=== PATIENT | female | born 1990 | race Caucasian/White ===

== ENCOUNTER → 2016-08-23 | Outpatient (REF) | payer BC | END | disposition home or self-care (01) | LOC: M LAB REF 13:11 | PROVIDERS: ATTEND Obstetrics & Gynecology | DX: Z34.82 Encounter for supervision of other normal pregnancy, second trimester (principal); Z36 Encounter for antenatal screening of mother; Z3A.00 Weeks of gestation of pregnancy not specified ==

== ENCOUNTER → 2016-09-06 | Outpatient (CLI) | payer BC, MEDICAID, SELFPAY ==
[2016-09-06 17:58] LABS: MEAN CORPUSCULAR HEMOGLOBIN 30.5 pg (27.0-33.0); MEAN CORPUSCULAR HGB CONC 34.9 g/dl (32.0-36.5); MEAN CORPUSCULAR VOLUME 87.4 fl (80.0-96.0); WHITE BLOOD COUNT 10.6 K/mm3 (4.0-10.0)
[2016-09-06 18:45] LABS: FREE T4 1.01 NG/DL (0.76-1.46)
== END | disposition home or self-care (01) ==
LOC: M SMT 13:58
PROVIDERS: ATTEND Obstetrics & Gynecology
DX: Z34.83 Encounter for supervision of other normal pregnancy, third trimester (principal); Z36 Encounter for antenatal screening of mother; Z3A.00 Weeks of gestation of pregnancy not specified

== ENCOUNTER → 2016-10-07 | Outpatient (REF) | payer MEDICAID | END | disposition home or self-care (01) | LOC: M LAB REF 16:50 | PROVIDERS: ATTEND Specialist | DX: Z34.03 Encounter for supervision of normal first pregnancy, third trimester (principal); Z36 Encounter for antenatal screening of mother; Z3A.00 Weeks of gestation of pregnancy not specified ==

== ENCOUNTER → 2016-10-25 | Outpatient (CLI) | payer OTHER, MEDICAID ==
[2016-10-25 13:22] LABS: MEAN CORPUSCULAR HGB CONC 34.3 g/dl (32.0-36.5); MEAN CORPUSCULAR VOLUME 87.7 fl (80.0-96.0); RED CELL DISTRIBUTION WIDTH 12.5 % (11.5-14.5); WHITE BLOOD COUNT 10.4 K/mm3 (4.0-10.0)
[2016-10-25 13:41] LABS: ALT/SGPT 12 U/L (12-78); AST/SGOT 14 U/L (15-37); BILIRUBIN,TOTAL 0.2 MG/DL (0.2-1.0); CREATININE FOR GFR 0.79 MG/DL (0.55-1.02); GLOMERULAR FILTRATION RATE > 60.0 (>60); URIC ACID 5.5 MG/DL (2.6-6.0)
== END ==
LOC: M SMT 10:04
PROVIDERS: ATTEND Obstetrics & Gynecology
DX: O16.3 Unspecified maternal hypertension, third trimester (principal); Z36 Encounter for antenatal screening of mother; Z3A.00 Weeks of gestation of pregnancy not specified

== ENCOUNTER 2016-11-01 12:54 | Inpatient (IN) | payer OTHER, MEDICAID ==
[2016-11-01] VITALS (18 sets, daily range): BP systolic 120–155; BP diastolic 66–92
[~2016-11-01] VITALS: Ht 165.1 cm; Wt 94.0 kg
[2016-11-01] MEDS ORDERED: PRENTAB9 PO (13:03)
[2016-11-01 14:19] LABS: MEAN CORPUSCULAR HEMOGLOBIN 30.3 pg (27.0-33.0); MEAN CORPUSCULAR VOLUME 86.7 fl (80.0-96.0); RED CELL DISTRIBUTION WIDTH 12.5 % (11.5-14.5); WHITE BLOOD COUNT 10.6 K/mm3 (4.0-10.0)
[2016-11-01] MEDS ORDERED: LR 1,000 ML IV SCH (14:25)
[2016-11-01] MEDS ORDERED: OXYTOCIN 30 UNITS IN 0.9% NaCl 500ML IV BAG (J2590) As Ordered ONE (14:27)
[2016-11-01] MEDS ORDERED: OXYTOCIN DRIP 30 UNITS in APPROPRIATE DILUENT 1 EA IV SCH ×2 (14:30→22:16)
--- NOTE | 2016-11-01 14:48 | HPE ---
DATE OF ADMISSION: 11/01/2016 Natalie is a 26-year-old 1, para 0 at 39-1/7 weeks gestation with an estimated date of confinement (EDC) of 11/07/2016 based on last normal menstrual period and confirmed by a first trimester ultrasound. She presents to labor and delivery today following routine appointment noted to have elevated blood pressure 140/82 and with the same last week 138/94. She had a pre-eclamptic profile that returned in normal limits and a spot urine was 0.25 on 10/26/2015. She denies any regular contractions, vaginal bleeding and leakage of fluid. The fetus has been active. She does report a headache over the weekend that has since resolved. She denies visual disturbances, epigastric pain and right upper quadrant discomfort. care was initiated at [facility] in the second trend trimester as a transfer of care from alternate care provider in [facility]. course has been uncomplicated until last week. Current diagnosis is gestational hypertension. OBSTETRICAL HISTORY: Primigravida. OBSTETRICAL LABORATORIES: Blood type A+, antibody screen negative. Pap was normal. Rubella immune, VDRL nonreactive. Urine culture no growth. Hep B surface antigen negative, HIV negative gonorrhea and chlamydia negative. She did decline genetic serum screening labs. Her gestational diabetic screening was elevated at 150 with a normal 3-hour glucose tolerance test, fasting 97, 1-hour 172, 2-hour 135 a 3-hour 79. Her GBS is negative. PAST MEDICAL HISTORY: Asthma, childhood varicella. SURGERIES: None. FAMILY HISTORY: Noncontributory. SOCIAL HISTORY: The patient is . The father is at the bedside and supportive. She is a nonsmoker. Denies alcohol and drug use. No history of any sexually transmitted infections and denies history of abuse -- physical, sexual and emotional. ALLERGIES: No known drug allergies. CURRENT MEDICATIONS: vitamins and ferrous sulfate 325 mg twice a day. OBJECTIVE: Temperature 99, pulse 91, respirations 18, blood pressure upon arrival 120/84. heart rate 130 with moderate variability, positive accelerations and no decelerations noted. No pattern of regular contractions. There is noted uterine irritability. Abdomen is gravid, cephalic presentation. Estimated weight 8 pounds. Sterile vaginal exam: 2 cm dilated, 100 percent effaced, -1 station. ASSESSMENT: Intrauterine at 39-1/7 weeks. heart rate category 1. Gestational hypertension. PLAN: Per consult with Dr. Najera, induction of labor due to gestational hypertension. Out of bed ad clay. Clear liquid diet. Laboratories, including repeat pre-eclamptic profile. Start IV Pitocin for labor induction. The patient currently has a desire to manage her labor physiologically so we will encourage out of bed positions. I do anticipate labor and a spontaneous vaginal delivery. MTDD
[2016-11-01 14:57] LABS: ALT/SGPT 14 U/L (12-78); AST/SGOT 26 U/L (15-37); BILIRUBIN,TOTAL 0.4 MG/DL (0.2-1.0); CREATININE FOR GFR 0.75 MG/DL (0.55-1.02); GLOMERULAR FILTRATION RATE > 60.0 (>60); URIC ACID 6.3 MG/DL (2.6-6.0)
[2016-11-01] MEDS ORDERED: ACETAMINOPHEN 500 MG TAB PO PRN ×2 (19:00→22:30)
[2016-11-01] MEDS ORDERED: LIDOCAINE 1% MDV INJ 50 ML VIAL INFIL ONE (22:30)
[2016-11-01] MEDS ORDERED: ONDANSETRON 4MG/2ML VIAL (J2405) IV PRN (22:30)
[2016-11-01] MEDS ORDERED: DOCUSATE SODIUM 100 MG CAP PO PRN (22:30)
[2016-11-01] MEDS ORDERED: DIBUCAINE 1% OINTMENT 30GM TOP PRN (22:30)
[2016-11-01] MEDS ORDERED: IBUPROFEN 800 MG TAB PO PRN (22:30)
[2016-11-01] MEDS ORDERED: RHOGAM 300 MCG (1500 IU) INJ (J2790) IM SCH (22:30)
[2016-11-01] MEDS ORDERED: MEASLES,MUMPS,RUBELLA VACCINE INJ (MMR-II) (90707) SC SCH (22:30)
--- NOTE | 2016-11-01 22:43 | DN ---
DATE: 11/01/2016 Natalie is a 26-year-old 1, para 1-0-0-1 now who was admitted to labor and delivery for induction of labor due to gestational hypertension. IV Pitocin was utilized and labor did ensue. She did progress to full dilation at 2110 hours. She pushed to a normal spontaneous vaginal delivery of a live male in occiput anterior (OA) position with restitution to right occiput transverse (ROT) position at 2132 hours. There was a left compound hand. There was no nuchal cord. The shoulders delivered with gentle downward guidance, and the corpus immediately followed. was placed on maternal abdomen crying and active. His mouth and nares were bulb suctioned. The cord was clamped times two once pulsations ceased and cut by the father of the baby. Cord blood was obtained. A spontaneous expulsion of an intact placenta with three-vessel cord by Rosenbaum mechanism was at 2139 hours. Uterine hemostasis was achieved with uterine fundal massage and IV Pitocin rapid infusion. Estimated blood loss 400 mL. Perineum and vagina inspected, noted to have a first-degree midline laceration. The laceration was infiltrated with 1% lidocaine and #3-0 Rapide in the usual fashion. [place] male weighed 8 pounds, 36 28 grams, scores 9 and 9. Mom plans to breastfeed the son, and they have named him Beltran. At the close of delivery, lap counts, instrument counts and needle counts were correct and verified. [facility]
[2016-11-02 00:01] VITALS: BP 146/93
[2016-11-02 05:57] VITALS: BP 123/64
[2016-11-02] MEDS: PRENATAL VITAMIN TAB PO SCH (09:00)
[2016-11-02 18:03] VITALS: BP 118/74
[2016-11-03 06:24] VITALS: BP 134/88
[2016-11-03] MEDS: PRENATAL VITAMIN TAB PO SCH (09:00)
[2016-11-03] MEDS ORDERED: ACET50TA PO (09:10)
[2016-11-03] MEDS ORDERED: IBUP-1114 PO (09:13)
== END 2016-11-03 11:25 | disposition home or self-care (01) | DRG 560 ==
LOC: M LDI 12:54 → M OBS 23:52
PROVIDERS: ADMIT Advanced Practice Midwife; ATTEND Advanced Practice Midwife
PROC: 10E0XZZ Delivery of Products of Conception, External Approach (ICD-10-PCS; principal; 2016-11-01)
PROC: 0HQ9XZZ Repair Perineum Skin, External Approach (ICD-10-PCS; 2016-11-01)
PROC: 3E033VJ Introduction of Other Hormone into Peripheral Vein, Percutaneous Approach (ICD-10-PCS; 2016-11-01)
DX: O13.4 Gestational [pregnancy-induced] hypertension without significant proteinuria, complicating childbirth (principal); O64.5XX0 Obstructed labor due to compound presentation, not applicable or unspecified; Z37.0 Single live birth; Z3A.39 39 weeks gestation of pregnancy; O70.0 First degree perineal laceration during delivery; Z79.899 Other long term (current) drug therapy

== ENCOUNTER → 2018-07-10 | Outpatient (REF) | payer OTHER | LOC: M LAB REF 18:15 | DX: Z12.4 Encounter for screening for malignant neoplasm of cervix (principal) | CPT/HCPCS: 88142 ==

== ENCOUNTER → 2018-11-20 | Outpatient (REF) | payer OTHER ==
[~2018-11-20] MED LIST: IBUP-1114 PO; MAPA500T2 PO; PRENTAB9 PO
== END ==
LOC: M LAB REF 09:27
PROVIDERS: ATTEND Physician Assistant Medical
DX: L03.125 Acute lymphangitis of right lower limb (principal)

== ENCOUNTER 2021-10-03 14:46 | Emergency (ER) | payer OTHER ==
[~2021-10-03] VITALS: Ht 165.1 cm; Wt 74.4 kg
[2021-10-03] MEDS ORDERED: NS 2,230 ML in IV 1 EA IV ONE (18:20)
[2021-10-03 18:54] LABS: HEMATOCRIT 43.5 % (36.0-47.0); HEMOGLOBIN 15.6 g/dl (12.0-15.5); MEAN CORPUSCULAR HEMOGLOBIN 29.9 pg (27.0-33.0); MEAN CORPUSCULAR HGB CONC 35.9 g/dl (32.0-36.5); MEAN CORPUSCULAR VOLUME 83.5 fl (80.0-96.0); PLATELET COUNT, AUTOMATED 307 10^3/uL (150-450); RED BLOOD COUNT 5.21 10^6/uL (4.00-5.40); WHITE BLOOD COUNT 7.8 10^3/uL (4.0-10.0)
[2021-10-03 19:06] LABS: HCG, SERUM QUALITATIVE NEGATIVE (NEGATIVE)
[2021-10-03 19:21] LABS: ALBUMIN 3.2 GM/DL (3.2-5.2); ALT/SGPT 22 U/L (12-78); BILIRUBIN,DIRECT 0.1 MG/DL (0.0-0.2); BILIRUBIN,TOTAL 0.5 MG/DL (0.2-1.0); BLOOD UREA NITROGEN 16 MG/DL (7-18); CALCIUM LEVEL 8.2 MG/DL (8.5-10.1); CARBON DIOXIDE LEVEL 24 MEQ/L (21-32); CHLORIDE LEVEL 109 MEQ/L (98-107); CREATININE FOR GFR 0.85 MG/DL (0.55-1.30); FREE T4 1.31 NG/DL (0.76-1.46); GLOMERULAR FILTRATION RATE > 60.0 (>60); GLUCOSE, FASTING 88 MG/DL (70-100); MAGNESIUM LEVEL 1.8 MG/DL (1.8-2.4); POTASSIUM SERUM 3.7 MEQ/L (3.5-5.1); SODIUM LEVEL 140 MEQ/L (136-145)
[2021-10-03 19:27] LABS: ATYPICAL LYMPH 21 % (0-5); EOSINOPHILS 1 % (0-3); LYMPHOCYTES 32 % (16-44); MONOCYTES 7 % (0-5); NEUTROPHILS 34 % (28-66); PLATELET ESTIMATE NORMAL (NORMAL)
[2021-10-03 22:15] VITALS: BP 115/78
[2021-10-03 22:19] VITALS: O2SAT 100
== END 2021-10-03 22:47 | disposition home or self-care (01) ==
LOC: M ED 14:46
DX: E86.0 Dehydration (principal); Z86.16 Personal history of COVID-19; Z88.1 Allergy status to other antibiotic agents

== ENCOUNTER 2022-04-26 12:45 | Day surgery (SDC) | payer OTHER ==
[~2022-04-26] VITALS: Ht 165.1 cm; Wt 74.6 kg
[2022-04-26] MEDS ORDERED: LIDOCAINE 1% MDV 20ML VIAL As Ordered ONE (13:40)
[2022-04-26] MEDS ORDERED: LIDOCAINE 2% 100MG/5ML SDV (FOR ANES.) As Ordered ONE (13:51)
[2022-04-26] MEDS ORDERED: fentaNYL 100 MCG/2 ML INJECTION As Ordered ONE (13:51)
[2022-04-26] MEDS ORDERED: propofoL 200 MG/20 ML VIAL As Ordered ONE (13:51)
[2022-04-26] MEDS ORDERED: MIDAZOLAM INJ 2MG/2ML VIAL (J2250 PER 1MG) As Ordered ONE (13:51)
[2022-04-26] MEDS ORDERED: propofoL 500 MG/50 ML VIAL As Ordered ONE (13:52)
[2022-04-26] MEDS ORDERED: ONDANSETRON 4MG 2ML VIAL As Ordered ONE (14:17)
[2022-04-26] MEDS ORDERED: ACETAMINOPHEN 1000MG 100ML IV BTL (OFIRMEV) (J0131 PER 10MG) As Ordered ONE (14:17)
[2022-04-26] MEDS ORDERED: KETOROLAC 60MG 2ML VIAL As Ordered ONE (14:17)
[2022-04-26] MEDS ORDERED: dexameTHASONE 4 MG/ML 1ML VIAL (J1100 PER 1MG) As Ordered ONE (14:17)
[2022-04-26] MEDS ORDERED: METOCLOPRAMIDE INJ 10MG/2ML VIAL (J2765 PER 1) As Ordered ONE (14:19)
[2022-04-26] MEDS ORDERED: DOXYCYCLINE HYCLATE 100MG TABLET PO STA (15:01)
[2022-04-26 15:15] VITALS: BP 138/82
== END 2022-04-26 15:28 | disposition home or self-care (01) ==
LOC: M SDC 12:45
PROVIDERS: ATTEND Specialist
DX: O02.1 Missed abortion (principal); Z88.1 Allergy status to other antibiotic agents
CPT/HCPCS: 59820; 87635; 88305; J0131; J1100; J1885; J2250; J2405; J2765; J3010

== ENCOUNTER → 2022-04-26 | Outpatient (CLI) | payer OTHER | LOC: M WHC 08:07 | PROVIDERS: ATTEND Obstetrics & Gynecology | DX: O30.009 Twin pregnancy, unspecified number of placenta and unspecified number of amniotic sacs, unspecified trimester (principal) ==

== ENCOUNTER → 2022-09-07 | Outpatient (CLI) | payer OTHER ==
[2022-09-07 15:25] LABS: HEMATOCRIT 36.6 % (36.0-47.0); HEMOGLOBIN 12.8 g/dl (12.0-15.5); MEAN CORPUSCULAR VOLUME 85.9 fl (80.0-96.0); PLATELET COUNT, AUTOMATED 292 10^3/uL (150-450); RED BLOOD COUNT 4.26 10^6/uL (4.00-5.40); WHITE BLOOD COUNT 7.8 10^3/uL (4.0-10.0)
[2022-09-07 16:00] LABS: HIV 1&2 SCREEN CENTAUR NEGATIVE (NEGATIVE)
[2022-09-07 16:09] LABS: HEPATITIS C VIRUS ABY INDEX < 0.0 INDEX (<0.8)
[2022-09-07 16:57] LABS: GC DNA AMPLIFICATION NEGATIVE (NEGATIVE)
== END ==
LOC: M PLALAB 13:41
PROVIDERS: ATTEND Specialist
DX: Z34.81 Encounter for supervision of other normal pregnancy, first trimester (principal)

== ENCOUNTER → 2022-10-26 | Outpatient (CLI) | payer OTHER | LOC: M WHC 12:57 | PROVIDERS: ATTEND Specialist | DX: Z34.82 Encounter for supervision of other normal pregnancy, second trimester (principal) ==

== ENCOUNTER → 2022-12-21 | Outpatient (CLI) | payer OTHER ==
[2022-12-21 15:56] LABS: HEMATOCRIT 33.6 % (36.0-47.0); HEMOGLOBIN 11.5 g/dl (12.0-15.5); MEAN CORPUSCULAR HEMOGLOBIN 31.3 pg (27.0-33.0); MEAN CORPUSCULAR HGB CONC 34.2 g/dl (32.0-36.5); MEAN CORPUSCULAR VOLUME 91.3 fl (80.0-96.0); PLATELET COUNT, AUTOMATED 282 10^3/uL (150-450); RED BLOOD COUNT 3.68 10^6/uL (4.00-5.40); WHITE BLOOD COUNT 10.8 10^3/uL (4.0-10.0)
[2022-12-21 17:23] LABS: GC DNA AMPLIFICATION NEGATIVE (NEGATIVE)
== END ==
LOC: M PLALAB 13:06
PROVIDERS: ATTEND Specialist
DX: Z34.82 Encounter for supervision of other normal pregnancy, second trimester (principal)

== ENCOUNTER 2023-01-07 10:50 | Outpatient (CLI) | payer OTHER ==
[~2023-01-07] VITALS: Ht 165.1 cm; Wt 82.4 kg
[2023-01-07] MEDS ORDERED: PREN1CHW6 PO (11:06)
[2023-01-07] MEDS ORDERED: HOME MED LIST COMPLETE! XX SCH (11:10)
[2023-01-07 11:15] VITALS: BP 187/116
[2023-01-07 11:17] VITALS: BP 171/123
[2023-01-07 11:28] LABS: HEMATOCRIT 35.2 % (36.0-47.0); HEMOGLOBIN 12.5 g/dl (12.0-15.5); MEAN CORPUSCULAR HEMOGLOBIN 31.4 pg (27.0-33.0); MEAN CORPUSCULAR HGB CONC 35.5 g/dl (32.0-36.5); MEAN CORPUSCULAR VOLUME 88.4 fl (80.0-96.0); PLATELET COUNT, AUTOMATED 282 10^3/uL (150-450); RED BLOOD COUNT 3.98 10^6/uL (4.00-5.40); WHITE BLOOD COUNT 10.4 10^3/uL (4.0-10.0)
[2023-01-07 11:41] VITALS: BP 164/112
[2023-01-07 11:48] LABS: TOTAL PROTEIN,RANDOM URINE 6.8 MG/DL (0.0-14.0)
[2023-01-07 11:51] LABS: URIC ACID 6.2 MG/DL (3.1-7.8)
[2023-01-07 11:53] LABS: LDH LACTATE DEHYDROGENASE 125 U/L (120-246)
[2023-01-07 11:53] LABS: CREATININE,RANDOM URINE 47.5 MG/DL
[2023-01-07 11:54] LABS: ALT/SGPT < 9 U/L (7.0-40); AST/SGOT 10 U/L (<34); BILIRUBIN,TOTAL 0.4 MG/DL (0.3-1.2); CREATININE FOR GFR 0.75 MG/DL (0.55-1.30); GLOMERULAR FILTRATION RATE > 60.0 (>60)
[2023-01-07 11:56] VITALS: BP 147/113
== END 2023-01-07 12:40 | disposition home or self-care (01) ==
LOC: M LDO 10:50
PROVIDERS: ATTEND Obstetrics & Gynecology
DX: O13.3 Gestational [pregnancy-induced] hypertension without significant proteinuria, third trimester (principal); Z3A.29 29 weeks gestation of pregnancy

== ENCOUNTER → 2023-01-10 | Outpatient (CLI) | payer OTHER ==
[~2023-01-10] MED LIST changes: +PREN1CHW6 PO
== END ==
LOC: M LAB 07:36
PROVIDERS: ATTEND Specialist
DX: Z34.82 Encounter for supervision of other normal pregnancy, second trimester (principal)

== ENCOUNTER → 2023-01-24 | Outpatient (CLI) | payer OTHER | LOC: M WHC 08:38 | PROVIDERS: ATTEND Specialist | DX: Z34.82 Encounter for supervision of other normal pregnancy, second trimester (principal) ==

== ENCOUNTER 2023-01-26 15:07 | Outpatient (CLI) | payer OTHER ==
[~2023-01-26] VITALS: Ht 165.1 cm; Wt 85.7 kg
[2023-01-26] VITALS (22 sets, daily range): BP systolic 117–171; BP diastolic 68–110
[2023-01-26] MEDS ORDERED: LABE100T71 PO (15:46)
[2023-01-26] MEDS ORDERED: HOME MED LIST COMPLETE! XX SCH (15:50)
[2023-01-26 17:03] LABS: HEMATOCRIT 32.5 % (36.0-47.0); HEMOGLOBIN 11.4 g/dl (12.0-15.5); MEAN CORPUSCULAR HEMOGLOBIN 31.8 pg (27.0-33.0); MEAN CORPUSCULAR HGB CONC 35.1 g/dl (32.0-36.5); MEAN CORPUSCULAR VOLUME 90.5 fl (80.0-96.0); PLATELET COUNT, AUTOMATED 278 10^3/uL (150-450); RED BLOOD COUNT 3.59 10^6/uL (4.00-5.40); WHITE BLOOD COUNT 10.1 10^3/uL (4.0-10.0)
[2023-01-26 17:14] LABS: TOTAL PROTEIN,RANDOM URINE 11.7 MG/DL (0.0-14.0)
[2023-01-26 17:19] LABS: CREATININE,RANDOM URINE 76.9 MG/DL
[2023-01-26 17:20] LABS: ALBUMIN 2.6 G/DL (3.2-5.2); ALKALINE PHOSPHATASE 62 U/L (46-116); ALT/SGPT < 9 U/L (7.0-40); AST/SGOT 9 U/L (<34); BILIRUBIN,TOTAL 0.3 MG/DL (0.3-1.2); BLOOD UREA NITROGEN 15 MG/DL (9-23); CALCIUM LEVEL 8.8 MG/DL (8.5-10.1); CARBON DIOXIDE LEVEL 21 MMOL/L (20-31); CHLORIDE LEVEL 107 MMOL/L (98-107); CREATININE FOR GFR 0.72 MG/DL (0.55-1.30); GLOMERULAR FILTRATION RATE > 60.0 (>60); GLUCOSE, FASTING 79 MG/DL (60-100); SODIUM LEVEL 137 MMOL/L (136-145); TOTAL PROTEIN 6.2 G/DL (5.7-8.2)
[2023-01-26] MEDS ORDERED: NIFEdipine 30MG XL TAB PO STA (17:34)
[2023-01-26] MEDS ORDERED: BETAMETHASONE SOLUSPAN 6MG/ML 5ML VIAL IM SCH (18:00)
== END 2023-01-26 21:19 | disposition home or self-care (01) ==
LOC: M LDO 15:07
PROVIDERS: ATTEND Obstetrics & Gynecology
DX: O10.013 Pre-existing essential hypertension complicating pregnancy, third trimester (principal); Z3A.32 32 weeks gestation of pregnancy
CPT/HCPCS: 36415; 59025; 80053; 82570; 84156; 85027; G0463; J0702

== ENCOUNTER 2023-01-27 20:55 | Outpatient (CLI) | payer OTHER ==
[2023-01-27] VITALS (12 sets, daily range): BP systolic 164–253; BP diastolic 97–138
[~2023-01-27] VITALS: Ht 165.1 cm; Wt 87.0 kg
[~2023-01-27 20:55] MED LIST changes: +LABE100T71 PO
[2023-01-27] MEDS ORDERED: BETAMETHASONE SOLUSPAN 6MG/ML 5ML VIAL IM ONE (21:10)
[2023-01-27] MEDS ORDERED: **hydrALAZINE** 10 MG TAB PO ONE (22:10)
[2023-01-27] MEDS ORDERED: LABETALOL 100MG/20ML VIAL IV STA (23:46)
[2023-01-28] VITALS (22 sets, daily range): BP systolic 117–198; BP diastolic 62–121
[2023-01-28] MEDS ORDERED: LABETALOL 100MG/20ML VIAL IV STA (00:25)
[2023-01-28] MEDS ORDERED: NIFEdipine 10 MG CAP PO STA ×2 (00:38→06:24)
[2023-01-28] MEDS ORDERED: NIFEdipine 30MG XL TAB PO SCH (09:00)
[2023-01-28] MEDS ORDERED: NIFE10CA2 PO (10:28)
== END 2023-01-28 10:06 | disposition home or self-care (01) ==
LOC: M LDO 20:55
PROVIDERS: ATTEND Advanced Practice Midwife
DX: O10.013 Pre-existing essential hypertension complicating pregnancy, third trimester (principal); Z3A.32 32 weeks gestation of pregnancy
CPT/HCPCS: 59025; 96372; G0463; J0702

== ENCOUNTER → 2023-02-03 | Outpatient (CLI) | payer OTHER ==
[~2023-02-03] MED LIST changes: +COLA100C5 PO; +IBUP80TA PO; +NIFE10CA2 PO; +NIFE1TAB52 PO; +PERCOCET PO
[2023-02-03 15:53] LABS: HEMATOCRIT 36.4 % (36.0-47.0); HEMOGLOBIN 12.6 g/dl (12.0-15.5); MEAN CORPUSCULAR HEMOGLOBIN 30.7 pg (27.0-33.0); MEAN CORPUSCULAR HGB CONC 34.6 g/dl (32.0-36.5); MEAN CORPUSCULAR VOLUME 88.8 fl (80.0-96.0); PLATELET COUNT, AUTOMATED 303 10^3/uL (150-450); WHITE BLOOD COUNT 11.9 10^3/uL (4.0-10.0)
[2023-02-03 16:15] LABS: TOTAL PROTEIN,RANDOM URINE 7.2 MG/DL (0.0-14.0)
[2023-02-03 16:18] LABS: LDH LACTATE DEHYDROGENASE 152 U/L (120-246)
[2023-02-03 16:19] LABS: ALT/SGPT 12 U/L (7.0-40); AST/SGOT 12 U/L (<34); BILIRUBIN,TOTAL 0.4 MG/DL (0.3-1.2); CREATININE FOR GFR 0.69 MG/DL (0.55-1.30); GLOMERULAR FILTRATION RATE > 60.0 (>60)
[2023-02-03 16:20] LABS: CREATININE,RANDOM URINE 21.3 MG/DL
== END ==
LOC: M PLALAB 12:53
PROVIDERS: ATTEND Specialist
DX: O16.3 Unspecified maternal hypertension, third trimester (principal)

== ENCOUNTER 2023-02-07 11:36 | Inpatient (IN) | payer OTHER ==
[~2023-02-07] VITALS: Ht 165.1 cm; Wt 86.4 kg
[2023-02-07] VITALS (32 sets, daily range): BP systolic 122–198; BP diastolic 73–119; O2SAT 99–100
[~2023-02-07 11:36] MED LIST changes: -COLA100C5 PO; -IBUP80TA PO; -NIFE1TAB52 PO; -PERCOCET PO
[2023-02-07] MEDS ORDERED: LIDOCAINE 1% MDV 20ML VIAL INFIL PRN (11:55)
[2023-02-07] MEDS ORDERED: OXYTOCIN DRIP 30 UNITS in IV 1 EA IV PRN (11:55)
[2023-02-07] MEDS ORDERED: NIFE1TAB52 PO (11:58)
[2023-02-07] MEDS ORDERED: HOME MED LIST COMPLETE! XX SCH (12:20)
[2023-02-07 13:08] LABS: HEMATOCRIT 33.7 % (36.0-47.0); MEAN CORPUSCULAR HEMOGLOBIN 31.4 pg (27.0-33.0); MEAN CORPUSCULAR HGB CONC 35.6 g/dl (32.0-36.5); MEAN CORPUSCULAR VOLUME 88.2 fl (80.0-96.0); PLATELET COUNT, AUTOMATED 315 10^3/uL (150-450); RED BLOOD COUNT 3.82 10^6/uL (4.00-5.40); WHITE BLOOD COUNT 13.1 10^3/uL (4.0-10.0)
[2023-02-07 13:35] LABS: LDH LACTATE DEHYDROGENASE 183 U/L (120-246)
[2023-02-07 13:36] LABS: ALT/SGPT 12 U/L (7.0-40); AST/SGOT 14 U/L (<34); BILIRUBIN,TOTAL 0.4 MG/DL (0.3-1.2); CREATININE FOR GFR 0.71 MG/DL (0.55-1.30); GLOMERULAR FILTRATION RATE > 60.0 (>60)
[2023-02-07 13:57] LABS: TOTAL PROTEIN,RANDOM URINE 8.4 MG/DL (0.0-14.0)
[2023-02-07 14:02] LABS: CREATININE,RANDOM URINE 37.2 MG/DL
[2023-02-07] MEDS ORDERED: hydrALAZINE 20MG/ML 1ML VIAL IV STA (16:40)
[2023-02-07] MEDS ORDERED: LACTATED RINGER'S 1000 ML IV STA (17:38)
[2023-02-07] MEDS ORDERED: CLINDAMYCIN 900 MG in IV 1 EA IV ONE (17:40)
[2023-02-07] MEDS ORDERED: LR 1,000 ML IV SCH ×2 (17:40→19:50)
[2023-02-07] MEDS ORDERED: BICITRA 30ML SOLN UDC PO ONE (17:40)
[2023-02-07] MEDS ORDERED: GENTAMICIN 120 MG in D5W 50 ML IV ONE (17:45)
[2023-02-07] MEDS ORDERED: hydrALAZINE 20MG/ML 1ML VIAL IV ONE (17:45)
[2023-02-07] MEDS ORDERED: MORPHINE PRES-FREE INJ 10 MG/10 ML VIAL As Ordered ONE (18:05)
[2023-02-07] MEDS ORDERED: ePHEDrine SULFATE 25 MG/5 ML(5MG/ML) SYRINGE As Ordered ONE (18:47)
[2023-02-07] MEDS ORDERED: PHENYLephrine 500MCG 5ML (100MCG/ML) SYRINGE As Ordered ONE (18:47)
[2023-02-07] MEDS ORDERED: ONDANSETRON 4MG 2ML VIAL As Ordered ONE (18:57)
[2023-02-07] MEDS ORDERED: KETOROLAC 60MG 2ML VIAL As Ordered ONE (18:57)
[2023-02-07] MEDS ORDERED: ACETAMINOPHEN 1000MG 100ML IV BAG As Ordered ONE (18:57)
[2023-02-07] MEDS ORDERED: METOCLOPRAMIDE INJ 10MG/2ML VIAL IV PRN (19:35)
[2023-02-07] MEDS ORDERED: oxyCODONE 5MG TAB PO PRN (19:35)
[2023-02-07] MEDS: SLF 3 ML SYR IV SCH (19:35)
[2023-02-07] MEDS ORDERED: ONDANSETRON 4MG 2ML VIAL IV PRN (19:35)
[2023-02-07] MEDS ORDERED: NALBUPHINE HCL 10 MG/ML 1ML AMP IV PRN (19:35)
[2023-02-07] MEDS ORDERED: fentaNYL 100 MCG/2 ML INJECTION IV PRN (19:35)
[2023-02-07] MEDS ORDERED: NALOXONE INJ 0.4MG/1ML VIAL IV PRN ×2 (19:35)
[2023-02-07] MEDS ORDERED: diphenhydrAMINE 50MG/ML VIAL IV PRN (19:35)
[2023-02-07] MEDS ORDERED: **NOTE PATIENT COMMENT** MISC XX SCH (19:35)
[2023-02-07 19:40] LABS: CORD GAS ABE A -4.4; CORD GAS ABE V -3.8; CORD GAS HCO3 A 21.9 MMOL/L; CORD GAS O2 SAT A 15.4 %; CORD GAS O2 SAT V 27.3 %; CORD GAS PCO2 A 44.9 mmHg; CORD GAS PCO2 V 42.7 mmHg; CORD GAS PH A 7.306 UNITS; CORD GAS PH V 7.33 UNITS; CORD GAS PO2 A 12.5 mmHg; CORD GAS SBC V 19.7 MMOL/L; CORD GAS TCO2 A 23.3 MMOL/L; CORD GAS TCO2 V 23.3 MMOL/L
[2023-02-07] MEDS ORDERED: OXYTOCIN DRIP 30 UNITS in IV 1 EA IV SCH (19:50)
[2023-02-07] MEDS ORDERED: ONDANSETRON 4MG TAB PO PRN (19:50)
[2023-02-07] MEDS ORDERED: RHOGAM 300MCG (1500IU) INJ IM SCH (19:50)
[2023-02-07] MEDS ORDERED: PERCOCET 5MG/325MG TAB PO PRN ×2 (19:50)
[2023-02-07] MEDS ORDERED: DOCUSATE SODIUM 100MG CAPSULE PO PRN (19:50)
[2023-02-07] MEDS ORDERED: SIMETHICONE 80MG CHEW TAB PO PRN (19:50)
[2023-02-07] MEDS ORDERED: MAG Sulf (L&D) 4 GM/100 ML 4 GM in IV 1 EA IV ONE (19:55)
[2023-02-07] MEDS ORDERED: MAG Sulf (OBGYN) 20GM/500ML 20,000 MG in IV 1 EA IV SCH (19:55)
[2023-02-07] MEDS ORDERED: OXYTOCIN 30UNITS IN 0.9% NaCl 500ML IV BAG As Ordered ONE (19:57)
[2023-02-07] MEDS ORDERED: MAGNESIUM *L&D* 4GM/100ML BAG (40MG/ML) As Ordered ONE (20:08)
[2023-02-07] MEDS ORDERED: MAGNESIUM SULFATE 4% INJ 20GM/500ML (40MG/ML) As Ordered ONE (20:34)
[2023-02-07 20:58] LABS: URIC ACID 7.5 MG/DL (3.1-7.8)
[2023-02-08] VITALS (34 sets, daily range): BP systolic 126–174; BP diastolic 62–110; TEMP 98.1–98.6; O2SAT 97–98
[2023-02-08] MEDS: KETOROLAC 30 MG/ML 1ML VIAL IV SCH ×3 (01:39→12:42)
[2023-02-08] MEDS: SLF 3 ML SYR IV SCH ×2 (03:35→11:35)
[2023-02-08 05:46] LABS: HEMATOCRIT 34.8 % (36.0-47.0); HEMOGLOBIN 11.8 g/dl (12.0-15.5); MEAN CORPUSCULAR HEMOGLOBIN 30.6 pg (27.0-33.0); MEAN CORPUSCULAR HGB CONC 33.9 g/dl (32.0-36.5); MEAN CORPUSCULAR VOLUME 90.4 fl (80.0-96.0); PLATELET COUNT, AUTOMATED 247 10^3/uL (150-450); RED BLOOD COUNT 3.85 10^6/uL (4.00-5.40); WHITE BLOOD COUNT 14.7 10^3/uL (4.0-10.0)
[2023-02-08] MEDS: PRENATAL VITAMINS CHEWABLE TABLET PO SCH (09:58)
[2023-02-08] MEDS: NIFEdipine 30MG XL TAB PO SCH (13:01)
[2023-02-08] MEDS: IBUPROFEN 800 MG TAB PO SCH (20:02)
[2023-02-09] VITALS (8 sets, daily range): BP systolic 140–153; BP diastolic 79–94; TEMP 97.8–98.7; O2SAT 98–100
[2023-02-09] MEDS: IBUPROFEN 800 MG TAB PO SCH ×2 (04:28→13:06)
[2023-02-09] MEDS: PRENATAL VITAMINS CHEWABLE TABLET PO SCH (08:52)
[2023-02-09] MEDS: NIFEdipine 30MG XL TAB PO SCH (08:53)
[2023-02-09] MEDS ORDERED: MEASLES,MUMPS,RUBELLA VACCINE INJ (MMR-II) SC.IMMUN ONE (09:00)
[2023-02-09] MEDS ORDERED: COLA100C5 PO (17:11)
[2023-02-09] MEDS ORDERED: NIFE1TAB52 PO (17:11)
[2023-02-09] MEDS ORDERED: PERCOCET PO (17:11)
[2023-02-09] MEDS ORDERED: IBUP80TA PO (17:11)
== END 2023-02-09 18:05 | disposition home or self-care (01) | DRG 540 ==
LOC: M LDI 11:36 → M OBS 02-08 12:00
PROVIDERS: ADMIT Specialist; ATTEND Specialist
PROC: 0UB70ZZ Excision of Bilateral Fallopian Tubes, Open Approach (ICD-10-PCS; 2023-02-07)
PROC: 10D00Z1 Extraction of Products of Conception, Low, Open Approach (ICD-10-PCS; principal; 2023-02-07 18:18)
DX: O36.5930 Maternal care for other known or suspected poor fetal growth, third trimester, not applicable or unspecified (principal); Z3A.33 33 weeks gestation of pregnancy; O11.4 Pre-existing hypertension with pre-eclampsia, complicating childbirth; Z88.0 Allergy status to penicillin; Z88.1 Allergy status to other antibiotic agents; Z88.8 Allergy status to other drugs, medicaments and biological substances; Z79.899 Other long term (current) drug therapy; Z37.0 Single live birth; Z30.2 Encounter for sterilization